=== PATIENT | female | born 1940 | race Caucasian/White ===

== ENCOUNTER 2017-11-12 20:54 | Emergency (ER) | payer MEDICARE, BC ==
[~2017-11-12] VITALS: Ht 165.1 cm; Wt 62.1 kg
[~2017-11-12 20:54] MED LIST: DIOVAN80 MG PO; SIMVASTATIN20 MG PO; SYNTHROID88 MCG PO
--- OUTSIDE RECORDS SUMMARY | 2017-11-12 20:56 | XMS REPORT | Clinical Summary ---
Author Author [facility] Address Unknown Phone Unavailable Care Team Providers Care Sample Washer Name Role Phone Chayito Araya MD PCP Allergies Not on File Current Medications Not on file Active Problems Not on file Encounters Date Type Specialty Care Team Description 11/11/2017 [facility]iology Fernie Purdy MD Cough Encounter 11/06/2017 Transcribe Fernie Daily MD Cough (Primary Dx) Orders 11/05/2017 Hospital Radiology Fernie Purdy MD Cough Encounter 10/31/2017 Transcribe Access Fernie Purdy MD Cough (Primary Dx) Orders 10/07/2017 Hospital Radiology Tayler Araya MD Chronic cough Encounter 10/07/2017 TranscriTayler Izquierdo MD Chronic cough ( Primary Orders Dx) after 11/11/2016 Social History Tobacco Use Types Packs/Day Years Used Date Never Assessed Sex Assigned at Date Recorded Not on file Last Filed Vital Signs Not on file Plan of Treatment Health Maintenance Due Date Last Done Comments SHINGRIX VACCINE (#1) 1989 ZOSTER VACCINE 1999 PNEUMOCOCCAL 2004 POLYSACCHARIDE VACCINE AGE 65 AND OVER PNEUMOCOCCAL-13 2004 INFLUENZA VACCINE 01/28/2018 Results * FL Esophagram Complete (11/11/2017 11:29 AM) Specimen Performing Laboratory [facility] [address] [place] [address] Narrative EXAMINATION:FL ESOPHAGRAM COMPLETE CLINICAL HISTORY:R05 Cough, COUGH COMPARISON:None. Fluoroscopy time: 1 minute 21 seconds FINDINGS: The patient swallowed barium without difficulty. There is minimal compression of the cervical esophagus by cervicalosteophytes which is generally of no significance. There is no evidence of laryngeal penetration or aspiration on the study to the limits of visualization. The esophagus appears within normal limits. There is no gastroesophageal reflux or significant hiatal hernia identified. IMPRESSION: No significant finding is visualized [id number] Procedure Note Interface, Radiology Results Incoming - 11/11/2017 11:41 AM CDT EXAMINATION: FL ESOPHAGRAM COMPLETE CLINICAL HISTORY: R05 Cough, COUGH COMPARISON: None. Fluoroscopy time: 1 minute 21 seconds FINDINGS: The patient swallowed barium without difficulty. There is minimal compression of the cervical esophagus by cervical osteophytes which is generally of no significance. There is no evidence of laryngeal penetration or aspiration on the study to the limits of visualization. The esophagus appears within normal limits. There is no gastroesophageal reflux or significant hiatal hernia identified. IMPRESSION: No significant finding is visualized [id number] * CT Chest Wo Contrast (11/05/2017 10:42 AM) Specimen Performing Laboratory [facility] [address] [place] [address] Narrative EXAMINATION: CT CHEST WO CONTRAST CLINICAL HISTORY: 77 years Female R05 Cough, COUGH TECHNIQUE:Multiple axial images of the chest were obtained without intravenous contrast. The lack of intravenous contrast reduces the sensitivity of detecting solid organ disease and evaluating vasculature. Sagittal and coronal computerized reformatted images were also obtained. CT imaging was performed with iterative reconstruction techniques and/or automated exposure control to reduce radiation dose. COMPARISON: None. FINDINGS: The mediastinum demonstrates no abnormal lymph nodes. The hilar areas also appearunremarkable. Heart size is within normal limits. There is stable apical pleural-parenchymal scarring bilaterally. A stable peripheral nodule in the right upper lobe along the periphery of the major fissure measures in the 4 mm range previously measuring 3 to 4 mm which appears minimally if any changed given slight differences in technique. This is consistent with postinflammatory change Several adjacent small nodular areas in the superior segment of the right lower lobe remains stable in the 2 to 3 mm range. However additionally there appear to be some new areas of nodularity suggesting a tree-in-bud type appearance in the right upper lobe just above the minor fissure with mild bronchial wall thickening suggesting inflammatory process with peribronchiolitis. There is also moderate bronchiectasis involving the lingula and middle lobe that in the middle lobe appears mostly chronic that in the lingula slightly increased when compared to previous. There is no pleural fluid identified. Views of the upper abdomen which were obtained demonstrate no additional findings of significance. Pleural thickening and nodularity in the left upper lobe lingular area appear stable when compared to prior. Views of the upper abdomen which were included demonstrate no focal findings. IMPRESSION: 1. Since the patient's prior examination from November 15, 2017 there has been a slight increase in the presumed inflammatory changes with mild peribronchial nodularity and slight groundglass attenuation consistent with an inflammatory process. 2. There is also stable bronchiectasis in the middle lobe with a slight increase in the lingula and peripheral areas of pleural thickening and focal opacity in the lingula and middle lobe which are mostly unchanged 3. Apical pleural and parenchymal scarring and a densely calcified granuloma at the left lung base stable since previous. [id number] Procedure Note Hm Interface, Radiology Results Incoming - 11/05/2017 11:13 AM CDT EXAMINATION: CT CHEST WO CONTRAST CLINICAL HISTORY: 77 years Female R05 Cough, COUGH TECHNIQUE: Multiple axial images of the chest were obtained without intravenous contrast. The lack of intravenous contrast reduces the sensitivity of detecting solid organ disease and evaluating vasculature. Sagittal and coronal computerized reformatted images were also obtained. CT imaging was performed with iterative reconstruction techniques and/or automated exposure control to reduce radiation dose. COMPARISON: None. FINDINGS: The mediastinum demonstrates no abnormal lymph nodes. The hilar areas also appear unremarkable. Heart size is within normal limits. There is stable apical pleural-parenchymal scarring bilaterally. A stable peripheral nodule in the right upper lobe along the periphery of the major fissure measures in the 4 mm range previously measuring 3 to 4 mm which appears minimally if any changed given slight differences in technique. This is consistent with postinflammatory change Several adjacent small nodular areas in the superior segment of the right lower lobe remains stable in the 2 to 3 mm range. However additionally there appear to be some new areas of nodularity suggesting a tree-in-bud type appearance in the right upper lobe just above the minor fissure with mild bronchial wall thickening suggesting inflammatory process with peribronchiolitis. There is also moderate bronchiectasis involving the lingula and middle lobe that in the middle lobe appears mostly chronic that in the lingula slightly increased when compared to previous. There is no pleural fluid identified. Views of the upper abdomen which were obtained demonstrate no additional findings of significance. Pleural thickening and nodularity in the left upper lobe lingular area appear stable when compared to prior. Views of the upper abdomen which were included demonstrate no focal findings. IMPRESSION: 1. Since the patient's prior examination from November 15, 2017 there has been a slight increase in the presumed inflammatory changes with mild peribronchial nodularity and slight groundglass attenuation consistent with an inflammatory process. 2. There is also stable bronchiectasis in the middle lobe with a slight increase in the lingula and peripheral areas of pleural thickening and focal opacity in the lingula and middle lobe which are mostly unchanged 3. Apical pleural and parenchymal scarring and a densely calcified granuloma at the left lung base stable since previous. [id number] * XR Chest 2 Vw (10/07/2017 11:10 AM) Specimen Performing Laboratory [facility] [address] [place] [address] Narrative EXAMINATION:XR CHEST 2 VW CLINICAL HISTORY:R05 Cough, R05 COMPARISON: February 21, 2016 FINDINGS: Heart size appears within normal limits. The mediastinum appears unremarkable. There are no acute cardiopulmonary abnormalities noted. A few scattered calcified granulomata are noted. Bilateral apical pleural thickening which is stable is noted. IMPRESSION: No acute finding is visualized. [id number] Procedure Note Interface, Radiology Results Incoming - 10/07/2017 11:39 AM CDT EXAMINATION: XR CHEST 2 VW CLINICAL HISTORY: R05 Cough, R05 COMPARISON: February 21, 2016 FINDINGS: Heart size appears within normal limits. The mediastinum appears unremarkable. There are no acute cardiopulmonary abnormalities noted. A few scattered calcified granulomata are noted. Bilateral apical pleural thickening which is stable is noted. IMPRESSION: No acute finding is visualized. [id number] after 11/11/2016 Insurance Payer Benefit Subscriber ID Type Phone Address Plan / Group BCBS BCBS xxxxxxxxx PPO CHOICE PPO/[employer] EMPL PPO MEDICARE MEDICARE xxxxxxxxxx Medicare [place], [place] [address]
[2017-11-12] MEDS ORDERED: DIATRIZOATE MEGL/DIATRIZOA SOD 30 ML BTL PO ONE (21:13)
[2017-11-12] MEDS ORDERED: ONDANSETRON HCL 4 MG ORAL DISINTEGRATING TAB PO ONE (21:15)
[2017-11-12] MEDS ORDERED: SODIUM CHLORIDE 0.9% 500ML 500 ML IV ONE (21:15)
[2017-11-12 21:21] LABS: EOSINOPHILS % 0.4 % (0.0-6.0); HEMATOCRIT 36.8 % (34.2-44.1); HEMOGLOBIN 12.2 g/dL (12.0-16.0); LYMPHOCYTES # (AUTO) 0.6 (1.0-3.2); LYMPHOCYTES % 11.5 % (18.0-39.1); MEAN CORPUSCULAR HEMOGLOBIN 28.4 pg (28-32); MEAN CORPUSCULAR HGB CONC 33.2 g/dL (31-35); MEAN CORPUSCULAR VOLUME 85.8 fL (81-99); MONOCYTES # (AUTO) 0.4 (0.2-0.8); MONOCYTES % 6.9 % (4.4-11.3); NEUTROPHILS # (AUTO) 4.2 (2.1-6.9); NEUTROPHILS % 80.8 % (38.7-80.0); PLATELET COUNT 171 x10e3/uL (140-360); RED BLOOD COUNT 4.29 x10e6/uL (3.6-5.1); RED CELL DISTRIBUTION WIDTH 13.4 % (11.7-14.4)
[2017-11-12 21:40] LABS: INR 1.05; PROTHROMBIN TIME 12.9 seconds (11.9-14.5)
[2017-11-12 21:41] LABS: PARTIAL THROMBOPLASTIN TIME 27.2 seconds (23.8-35.5)
[2017-11-12 21:50] LABS: ALANINE AMINOTRANSFERASE 14 IU/L (0-55); ALBUMIN 3.8 g/dL (3.5-5.0); ALKALINE PHOSPHATASE 64 IU/L (40-150); AMYLASE 84 U/L (25-125); ANION GAP 13.6 mmol/L (8-16); BLOOD UREA NITROGEN 18 mg/dL (7-26); BUN/CREATININE RATIO 24 (6-25); CALCIUM 9.6 mg/dL (8.4-10.2); CARBON DIOXIDE 25 mmol/L (22-29); CHLORIDE 105 mmol/L (98-107); CREATINE KINASE 58 IU/L (29-168); CREATININE, SERUM 0.76 mg/dL (0.57-1.11); EST GLOMERULAR FILTRATION RATE > 60 ML/MIN (60-); GLUCOSE 107 mg/dL (74-118); LIPASE 47 U/L (8-78); POTASSIUM 3.6 mmol/L (3.5-5.1); SODIUM 140 mmol/L (136-145)
[2017-11-12] MEDS ORDERED: SODIUM CHLORIDE 0.9% 50ML 50 ML ONE (22:31)
[2017-11-12] MEDS ORDERED: IOPAMIDOL 370 MG/ML 200 ML INFUS..BTL INJ ONE (22:31)
--- NOTE | 2017-11-12 23:05 | Diagnostic Imaging Report ---
EXAMINATION: CHEST 2 VIEWS INDICATION: Cough. COMPARISON: CT of the chest on 01/17/2010 FINDINGS: TUBES and LINES: None. LUNGS: Lungs are well inflated. Calcified granuloma in the left lung base There is mild prominence of the central pulmonary vasculature, consistent with pulmonary venous congestion. PLEURA: No pleural effusion or pneumothorax. HEART AND MEDIASTINUM: The cardiomediastinal silhouette is unremarkable. BONES AND SOFT TISSUES: No acute osseous lesion. Soft tissues are unremarkable. UPPER ABDOMEN: No free air under the diaphragm. IMPRESSION: No acute thoracic abnormality. Signed by: Dr. Bill Pacheco M.D. on 11/12/2017 11:02 PM
--- NOTE | 2017-11-12 23:12 | Diagnostic Imaging Report ---
EXAM: CT Abdomen and Pelvis WITH contrast INDICATION: Nausea and vomiting COMPARISON: None. TECHNIQUE: Abdomen and pelvis were scanned utilizing a multidetector helical scanner from the lung base to the pubic symphysis after administration of IV contrast. Coronal and sagittal reformations were obtained. Routine protocol was performed. Scan was performed when during portal venous phase. IV CONTRAST: 100 mL of Isovue-370 ORAL CONTRAST: Prior ingestion of barium-based contrast [facility] DOSE: Total DLP: 410.92 mGy*cm Estimated effective dose: (DLP x 0.015 x size factor) mSv COMPLICATIONS: None FINDINGS: The study is significantly limited by presence of high density barium contrast throughout the colon and rectum resulting in photon depletion/beam hardening artifact throughout the abdomen and pelvis LINES and TUBES: None. LOWER THORAX: Left lower lobe calcified granuloma. Minimal scarring in the lateral segment of the right middle lobe and lingula. HEPATOBILIARY: No focal hepatic lesions. No biliary ductal dilation. GALLBLADDER: No radio-opaque stones or sludge. No wall thickening. SPLEEN: No splenomegaly. PANCREAS: No focal masses or ductal dilatation. ADRENALS: No adrenal nodules KIDNEYS/URETERS: Limited examination. Kidneys enhance symmetrically. No hydronephrosis. No cystic or solid mass lesions. No stones. GI TRACT: No abnormal distention, wall thickening, or evidence of bowel obstruction. Severely limited. Appendix is not clearly identified. PELVIC ORGANS/BLADDER: Nondiagnostic LYMPH NODES: No lymphadenopathy. VESSELS: There is mild atherosclerotic disease in the aorta and major arterial branches. Severely limited. PERITONEUM / RETROPERITONEUM: Severely limited. BONES: There are degenerative changes in the lumbar spine. SOFT TISSUES: Unremarkable. IMPRESSION: 1. The study is severely limited and mostly nondiagnostic due to barium contrast throughout the colon limiting the examination. 2. Grossly, no evidence of acute intra-abdominal or pelvic abnormality. Signed by: Dr. Bill Pacheco M.D. on 11/12/2017 11:08 PM
[2017-11-13 00:02] LABS: CLARITY,URINE CLEAR (CLEAR); COLOR,URINE YELLOW (YELLOW)
[2017-11-13 00:03] LABS: BILIRUBIN,URINE 1+ (NEGATIVE); KETONES,URINE 1+ (NEGATIVE); LEUKOCYTE ESTERASE ,URINE NEGATIVE (NEGATIVE); NITRITE,URINE NEGATIVE (NEGATIVE); PROTEIN,URINE DIPSTICK 1+ (NEGATIVE); URINE UROBILINOGEN 0.2 mg/dL (0.2 - 1)
[2017-11-13 00:19] LABS: BACTERIA,URINE FEW /HPF; EPITHELIAL CELLS,URINE RARE /LPF; WBC,URINE (MAN) 0-5 /HPF (0-5)
[2017-11-13 00:20] LABS: MUCUS,URINE MODERATE (RARE)
[2017-11-13 01:04] VITALS: BP 127/64
== END 2017-11-13 01:34 | disposition home or self-care (01) ==
LOC: ER 20:54
DX: R11.2 Nausea with vomiting, unspecified (principal); R10.13 Epigastric pain; R05 Cough; I10 Essential (primary) hypertension; E78.5 Hyperlipidemia, unspecified; E07.9 Disorder of thyroid, unspecified
CPT/HCPCS: 36415; 71046; 74177; 80053; 81001; 82150; 82550; 82553; 83690; 83735; 83880; 84484; 85025; 85610; 85730; 93005; 99283; J7040; Q9967; 83605

== ENCOUNTER 2024-08-05 19:01 | Emergency (ER) | payer MEDICARE, BC ==
[~2024-08-05] VITALS: Ht 165.1 cm; Wt 57.2 kg
[~2024-08-05 19:01] MED LIST changes: +AMLODIPINE BESY10 MG PO; +CEPHALEXIN500 MG PO; +DOXEPIN HCL25 MG PO
[2024-08-05 19:40] LABS: EOSINOPHILS % 0.3 % (0.0-6.0); HEMATOCRIT 35.6 % (34.2-44.1); HEMOGLOBIN 11.8 g/dL (12.0-16.0); LYMPHOCYTES # (AUTO) 0.6 (1.0-3.2); LYMPHOCYTES % 16.9 % (18.0-39.1); MEAN CORPUSCULAR HEMOGLOBIN 28.9 pg (28-32); MEAN CORPUSCULAR HGB CONC 33.1 g/dL (31-35); MONOCYTES # (AUTO) 0.5 (0.2-0.8); MONOCYTES % 13.4 % (4.4-11.3); NEUTROPHILS # (AUTO) 2.5 (2.1-6.9); NEUTROPHILS % 68.6 % (38.7-80.0); PLATELET COUNT 152 x10e3/uL (140-360); RED BLOOD COUNT 4.09 x10e6/uL (3.6-5.1); RED CELL DISTRIBUTION WIDTH 14.1 % (11.7-14.4); WHITE BLOOD COUNT 3.66 x10e3/uL (4.8-10.8)
[2024-08-05] MEDS: SODIUM CHLORIDE 0.9% 1000ML 1,000 ML IV STA (19:42)
[2024-08-05] MEDS: ACETAMINOPHEN 325 MG TAB PO STA (19:43)
[2024-08-05 20:02] LABS: ALBUMIN 3.5 g/dL (3.5-5.0); ALBUMIN/GLOBULIN RATIO 0.9 (0.8-2.0); ANION GAP 14.5 mmol/L (8-16); BILIRUBIN,TOTAL 0.4 mg/dL (0.2-1.2); CALCIUM 9.1 mg/dL (8.4-10.2); CREATININE, SERUM 0.84 mg/dL (0.57-1.11); POTASSIUM 3.5 mmol/L (3.5-5.1); TOTAL PROTEIN 7.2 g/dL (6.5-8.1)
[2024-08-05 20:07] LABS: CORONAVIRUS COVID-19 AG NEGATIVE (NEGATIVE); INFLUENZA A AG POSITIVE (NEGATIVE); INFLUENZA B AG NEGATIVE (NEGATIVE)
[2024-08-05 20:08] LABS: TROPONIN I 0.006 ng/mL (0-0.300)
[2024-08-05] MEDS ORDERED: VENTOLIN HFA18 GM INH (20:30)
[2024-08-05] MEDS ORDERED: XOFLUZA80 MG PO (20:30)
[2024-08-05 20:44] VITALS: TEMP 99.5
[2024-08-05 21:15] VITALS: PULSE 85; RESP 16
[2024-08-05 21:16] VITALS: BP 129/68; O2SAT 95
== END 2024-08-05 21:19 | disposition home or self-care (01) ==
LOC: ER 19:05
DX: R50.9 Fever, unspecified (principal); J10.1 Influenza due to other identified influenza virus with other respiratory manifestations; R41.0 Disorientation, unspecified; I10 Essential (primary) hypertension; E78.5 Hyperlipidemia, unspecified; E03.9 Hypothyroidism, unspecified; F32.A Depression, unspecified; R94.31 Abnormal electrocardiogram [ECG] [EKG]
CPT/HCPCS: 36415; 71045; 80053; 82550; 83518; 83605; 83690; 83880; 84484; 85025; 87040; 87070; 87428; 93005; 99284; J2543; J7030